=== PATIENT | female | born 1990 | race Two or more races ===

== ENCOUNTER → 2021-03-17 23:20 | Outpatient (CLI) | payer OTHER ==
[~2021-03-17 23:20] MED LIST: MOTION SICKNESS25 M1 PO
== END | disposition home or self-care (01) ==
LOC: PPH VACUNA 23:20
DX: Z23 Encounter for immunization (principal)

== ENCOUNTER → 2021-07-16 | Emergency (ER) | payer OTHER ==
[~2021-07-16] VITALS: Ht 165.1 cm; Wt 98.0 kg
== END | disposition home or self-care (01) ==
LOC: ER 20:03
DX: R42 Dizziness and giddiness (principal); R11.0 Nausea

== ENCOUNTER 2021-11-30 07:55 | Emergency (ER) | payer OTHER ==
[~2021-11-30] VITALS: Ht 165.1 cm; Wt 90.7 kg
== END 2021-11-30 12:34 | disposition home or self-care (01) ==
LOC: ER 07:55
DX: K52.89 Other specified noninfective gastroenteritis and colitis (principal); Z20.822 Contact with and (suspected) exposure to COVID-19